=== PATIENT | female | born 1965 | race Caucasian/White ===

== ENCOUNTER → 2016-04-07 | Outpatient (CLI) | payer OTHER ==
[~2016-04-07] MED LIST: ADVAIR DISKUS1 DS2 IH; ALBUTEROL2.5 MG/3 M IH; ATORVASTATIN CA10 MG PO; ESOMEPRAZOLE MA40 M1 PO; FIORICET1 CAP PO; GLIPIZIDE10 M2 PO; GLUCOPHAGE PO; KLONOPIN 0.5MG0.5 MG PO; LISINOPRIL AND1 TA2 PO; MAXALT10 M2 PO; SINGULAIR PO; VICTOZA 3-0.6 MG/0.1 SQ
== END ==
LOC: RAD 16:22
DX: Z00.00 Encounter for general adult medical examination without abnormal findings (principal); A15.9 Respiratory tuberculosis unspecified

== ENCOUNTER → 2016-05-11 | Outpatient (CLI) | payer OTHER | LOC: RAD 15:55 | DX: M25.512 Pain in left shoulder (principal) ==

== ENCOUNTER 2016-05-20 11:59 | Emergency (ER) | payer OTHER ==
[2016-05-20] MEDS ORDERED: KLONOPIN 0.5MG0.5 MG PO (14:41)
[2016-05-20 14:57] VITALS: BP 114/57
[2016-05-20] MEDS ORDERED: VICTOZA 3-0.6 MG/0.1 SQ (15:09)
[2016-05-20] MEDS ORDERED: FIORICET1 CAP PO (15:09)
[2016-05-20] MEDS ORDERED: GLUCOPHAGE PO (15:09)
[2016-05-20] MEDS ORDERED: SINGULAIR PO (15:10)
[2016-05-20] MEDS ORDERED: MAXALT10 M2 PO (15:10)
[2016-05-20] MEDS ORDERED: ADVAIR DISKUS1 DS2 IH (15:10)
[2016-05-20] MEDS ORDERED: ALBUTEROL2.5 MG/3 M IH (15:11)
[2016-05-20] MEDS ORDERED: ATORVASTATIN CA10 MG PO (15:12)
[2016-05-20] MEDS ORDERED: ESOMEPRAZOLE MA40 M1 PO (15:12)
[2016-05-20] MEDS ORDERED: GLIPIZIDE10 M2 PO (15:12)
[2016-05-20] MEDS ORDERED: LISINOPRIL AND1 TA2 PO (15:13)
== END 2016-05-20 15:00 | disposition home or self-care (01) ==
LOC: AMSURD 11:59 → EDSTATUS 11:59 → ED 12:04
DX: E86.0 Dehydration (principal); I95.1 Orthostatic hypotension; K92.1 Melena; I10 Essential (primary) hypertension; M54.5 Low back pain; W18.12XA Fall from or off toilet with subsequent striking against object, initial encounter
CPT/HCPCS: J1885; J7030; J7120

== ENCOUNTER → 2016-08-24 | Day surgery (SDC) | payer OTHER | LOC: MSO 09:12 | DX: R10.13 Epigastric pain (principal); R11.0 Nausea; K21.9 Gastro-esophageal reflux disease without esophagitis | CPT/HCPCS: 00740; J3490; J7030 ==

== ENCOUNTER → 2017-03-08 | Outpatient (CLI) | payer BC | LOC: RAD 12:00 | DX: M47.27 Other spondylosis with radiculopathy, lumbosacral region (principal) ==

== ENCOUNTER → 2018-07-26 | Outpatient (CLI) | payer BC ==
[2018-07-26 16:01] LABS: ALBUMIN 4.1 g/dL (3.5-5.0); CALCIUM 9.2 mg/dL (8.3-10.5); POTASSIUM 3.5 mmol/L (3.5-5.1); TOTAL BILIRUBIN 0.2 mg/dL (0.2-1.2); TOTAL PROTEIN 6.4 g/dL (6.4-8.3)
== END ==
LOC: LAB 15:10
PROVIDERS: Internal Medicine
DX: Z00.00 Encounter for general adult medical examination without abnormal findings (principal)

== ENCOUNTER 2018-08-30 16:53 | Emergency (ER) | payer BC ==
[~2018-08-30] VITALS: Ht 154.9 cm; Wt 75.9 kg
[2018-08-30] MEDS ORDERED: VERAPAMIL120 MG PO (17:55)
[2018-08-30] MEDS ORDERED: ESCITALOPRAM10 MG PO (17:57)
[2018-08-30] MEDS ORDERED: DESYREL 100MG100 MG PO (17:57)
[2018-08-30] MEDS ORDERED: RANITIDINE HCL300 M1 PO (17:57)
[2018-08-30] MEDS ORDERED: NEURONTIN300 MG/CAP PO (17:59)
[2018-08-30] MEDS ORDERED: CYCLOBENZAPRINE10 M1 PO (20:09)
[2018-08-30 20:22] VITALS: BP 137/74
== END 2018-08-30 20:22 | disposition home or self-care (01) ==
LOC: ED 16:53
DX: G43.909 Migraine, unspecified, not intractable, without status migrainosus (principal); E11.649 Type 2 diabetes mellitus with hypoglycemia without coma; Z79.84 Long term (current) use of oral hypoglycemic drugs; Z90.49 Acquired absence of other specified parts of digestive tract; Z90.89 Acquired absence of other organs; Z95.9 Presence of cardiac and vascular implant and graft, unspecified
CPT/HCPCS: J1200; J1885

== ENCOUNTER → 2018-09-01 | Outpatient (CLI) | payer BC ==
[2018-08-30 20:22] VITALS: BP 137/74
[~2018-09-01] MED LIST changes: +CYCLOBENZAPRINE10 M1 PO; +DESYREL 100MG100 MG PO; +ESCITALOPRAM10 MG PO; +NEURONTIN300 MG/CAP PO; +RANITIDINE HCL300 M1 PO; +VERAPAMIL120 MG PO
== END ==
LOC: CARDLAB 12:00
DX: G47.8 Other sleep disorders (principal); G47.10 Hypersomnia, unspecified; R09.02 Hypoxemia

== ENCOUNTER → 2019-11-03 | Outpatient (CLI) | payer BC | LOC: RAD 11:20 | DX: J01.90 Acute sinusitis, unspecified (principal) ==

== ENCOUNTER → 2019-12-12 | Outpatient (CLI) | payer BC | LOC: RAD 07:00 | DX: M48.54XA Collapsed vertebra, not elsewhere classified, thoracic region, initial encounter for fracture (principal) ==

== ENCOUNTER → 2019-12-18 | Outpatient (CLI) | payer BC ==
[2019-12-18 22:38] LABS: CORTISOL RANDOM 6 ug/dL (3-20)
== END ==
LOC: LAB 12:03
PROVIDERS: Internal Medicine
DX: Z13.820 Encounter for screening for osteoporosis (principal); S22.080A Wedge compression fracture of T11-T12 vertebra, initial encounter for closed fracture; M85.80 Other specified disorders of bone density and structure, unspecified site

== ENCOUNTER → 2020-05-10 | Outpatient (CLI) | payer BC | LOC: RAD 10:18 | DX: G95.29 Other cord compression (principal); S22.080A Wedge compression fracture of T11-T12 vertebra, initial encounter for closed fracture ==

== ENCOUNTER → 2020-06-24 | Outpatient (CLI) | payer BC ==
[2020-06-24 12:10] LABS: BASO # 0.02 (0.02-0.10); HEMATOCRIT 29.7 % (37.0-47.0); HEMOGLOBIN 8.7 g/dL (12.5-16.0); LYMPH# 1.88 (1.50-4.00); MEAN CELL VOLUME 64 fl (78-100); MEAN CORPUSCULAR HEMOGLOBIN 19 pg (27-31); MEAN CORPUSCULAR HGB CONC 29 g/dL (33-37); MEAN PLATELET VOLUME 9.2 fl (7.4-10.4); NEU # 3.19 (1.40-6.50); PLATELET COUNT 301 K/mm3 (130-400); RED BLOOD COUNT 4.68 M/mm3 (4.10-5.30); RED CELL DISTRIBUTION WIDTH 20.2 % (11.5-14.5); WHITE BLOOD COUNT 5.4 K/mm3 (4.8-10.8)
[2020-06-24 12:15] LABS: ALBUMIN 4.1 g/dL (3.5-5.0); POTASSIUM 4.2 mmol/L (3.5-5.1)
[2020-06-24 12:16] LABS: CALCIUM 9.4 mg/dL (8.3-10.5)
[2020-06-24 12:19] LABS: TOTAL BILIRUBIN 0.2 mg/dL (0.2-1.2)
== END ==
LOC: LAB 11:53
PROVIDERS: Internal Medicine
DX: E11.9 Type 2 diabetes mellitus without complications (principal)

== ENCOUNTER → 2020-07-05 | Outpatient (CLI) | payer BC | LOC: LAB 12:43 | DX: D50.9 Iron deficiency anemia, unspecified (principal) ==

== ENCOUNTER → 2020-07-26 | Outpatient (CLI) | payer BC | LOC: LAB 13:17 | DX: D50.9 Iron deficiency anemia, unspecified (principal) ==

== ENCOUNTER → 2020-10-25 | Outpatient (CLI) | payer BC ==
[2020-10-25 09:42] LABS: HEMATOCRIT 35.2 % (37.0-47.0); HEMOGLOBIN 10.4 g/dL (12.5-16.0); LYMPH# 2.21 (1.50-4.00); MEAN CELL VOLUME 72 fl (78-100); MEAN CORPUSCULAR HEMOGLOBIN 21 pg (27-31); MEAN CORPUSCULAR HGB CONC 30 g/dL (33-37); MEAN PLATELET VOLUME 8.6 fl (7.4-10.4); MONO # 0.51 (0.20-0.80); NEU # 3.85 (1.40-6.50); PLATELET COUNT 341 K/mm3 (130-400); RED BLOOD COUNT 4.88 M/mm3 (4.10-5.30); RED CELL DISTRIBUTION WIDTH 19.1 % (11.5-14.5); WHITE BLOOD COUNT 6.6 K/mm3 (4.8-10.8)
[2020-10-25 10:01] LABS: ALBUMIN 3.9 g/dL (3.5-5.0); POTASSIUM 4.2 mmol/L (3.5-5.1)
[2020-10-25 10:04] LABS: TOTAL PROTEIN 6.6 g/dL (6.4-8.3)
[2020-10-25 10:06] LABS: TOTAL BILIRUBIN 0.2 mg/dL (0.2-1.2)
[2020-10-25 10:10] LABS: MAGNESIUM 1.44 mg/dL (1.60-2.60)
== END ==
LOC: LAB 09:21
PROVIDERS: Internal Medicine
DX: I10 Essential (primary) hypertension (principal); K90.9 Intestinal malabsorption, unspecified

== ENCOUNTER → 2020-10-29 | Outpatient (CLI) | payer BC | LOC: RAD 09:25 | DX: M79.641 Pain in right hand (principal); M79.642 Pain in left hand ==

== ENCOUNTER → 2021-07-08 | Outpatient (CLI) | payer BC ==
[2021-07-08 11:48] LABS: BASO # 0.01 K/mm3 (0.02-0.10); HEMATOCRIT 41.2 % (37.0-47.0); HEMOGLOBIN 13.8 g/dL (12.5-16.0); LYMPH# 3.02 K/mm3 (1.50-4.00); MEAN CELL VOLUME 85 fl (78-100); MEAN CORPUSCULAR HEMOGLOBIN 28 pg (27-31); MEAN CORPUSCULAR HGB CONC 34 g/dL (33-37); MEAN PLATELET VOLUME 9.1 fl (7.4-10.4); MONO # 0.53 K/mm3 (0.20-0.80); NEU # 3.27 K/mm3 (1.40-6.50); PLATELET COUNT 249 K/mm3 (130-400); RED BLOOD COUNT 4.86 M/mm3 (4.10-5.30); RED CELL DISTRIBUTION WIDTH 12.8 % (11.5-14.5); WHITE BLOOD COUNT 6.9 K/mm3 (4.8-10.8)
[2021-07-08 12:04] LABS: POTASSIUM 4.1 mmol/L (3.5-5.1)
[2021-07-08 12:05] LABS: ALBUMIN 4.1 g/dL (3.5-5.0)
[2021-07-08 12:06] LABS: CALCIUM 9.8 mg/dL (8.3-10.5)
[2021-07-08 12:09] LABS: TOTAL BILIRUBIN 0.2 mg/dL (0.2-1.2)
[2021-07-08 12:14] LABS: MAGNESIUM 1.52 mg/dL (1.60-2.60)
[2021-07-08 12:25] LABS: URINE APPEARANCE CLEAR; URINE BILIRUBIN NEGATIVE (NEGATIVE); URINE BLOOD NEGATIVE (NEGATIVE); URINE COLOR YELLOW; URINE GLUCOSE NEGATIVE (NEGATIVE); URINE KETONE NEGATIVE (NEGATIVE); URINE LEUKOCYTE ESTERASE NEGATIVE (NEGATIVE); URINE NITRATE NEGATIVE (NEGATIVE); URINE PROTEIN(semi-quant) NEGATIVE (NEGATIVE); URINE UROBILINOGEN NORMAL (NORMAL); URINE WBC 0-1 /hpf (0-3)
== END ==
LOC: LAB 11:11
PROVIDERS: Internal Medicine
DX: E55.9 Vitamin D deficiency, unspecified (principal); E11.9 Type 2 diabetes mellitus without complications; M54.50 Low back pain, unspecified; M47.814 Spondylosis without myelopathy or radiculopathy, thoracic region; G47.33 Obstructive sleep apnea (adult) (pediatric); K90.9 Intestinal malabsorption, unspecified; E78.2 Mixed hyperlipidemia; D50.9 Iron deficiency anemia, unspecified; I10 Essential (primary) hypertension

== ENCOUNTER → 2021-12-18 | Outpatient (CLI) | payer BC | LOC: LAB 12:35 | DX: R30.0 Dysuria (principal) ==